=== PATIENT | male | born 1960 | race Caucasian/White ===

== ENCOUNTER 2018-01-21 17:50 | Emergency (ER) | payer SELFPAY ==
[2018-01-21 17:52] VITALS: BP 180/115; PULSE 71; RESP 16; TEMP 36.6; O2SAT 98
--- NOTE | 2018-01-21 18:19 | EKG12_ITS ---
Test Reason : Blood Pressure : / mmHG Vent. Rate : 064 BPM Atrial Rate : 064 BPM P-R Int : 160 ms QRS Dur : 084 ms QT Int : 414 ms P-R-T Axes : 061 -07 033 degrees QTc Int : 427 ms Sinus bradycardia Left axis deviation Possible Inferior infarct Confirmed by MAURICIO HERRMANN, STEF ([id number]), publications editor GINGER ALVARADO ([id number] on 01/25/2018 3:56:45 PM Referred By: HAYDEE Confirmed By:STEF MARTÍNEZ MD
[2018-01-21] MEDS: amLODIPine 5 MG Tablet PO (18:46)
[2018-01-21 18:50] VITALS: BP 173/112; PULSE 66; RESP 15; O2SAT 98
[2018-01-21 18:56] LABS: Hemoglobin 15.8 g/dl (13.0-16.5); Mean Corp Hgb Conc 33.6 g/gl (32-36); Mean Corpuscular Hgb 28.8 pg (27.0-32.0); Mean Corpuscular Volume 85.8 fL (80-94); Mean Platelet Vol. 11.4 fl (6.2-12.0); Platelet Count 219 K/mm3 (150-450); RBC Distribution Width CV 13.2 % (11.6-14.6); RBC Distribution Width SD 41.6 fl (35.1-43.9); Red Blood Count 5.48 M/mm3 (4.6-6.2); White Blood Count 9.7 K/mm3 (4.4-11.0)
[2018-01-21 18:57] LABS: Scan Indicated on CBC? Y/N NO
[2018-01-21 19:02] LABS: Anion Gap 6 (5-15); BUN 15 mg/dL (7-18); Calcium,Total 8.7 mg/dL (8.5-10.1); Chloride 106 mmol/L (98-107); Creatinine, Serum 0.79 mg/dL (0.70-1.30); EST Glomerular Filtration Rate 108 mL/min (>60); Est Glom Filt Rate - Afr Amer 131 mL/min (>60); Estimated Creatinine Clearance 169.46 ml/min; Glucose 130 mg/dL (74-106); Potassium 3.8 mmol/L (3.5-5.1); Sodium Level 139 mmol/L (136-145)
--- NOTE | 2018-01-21 19:46 | ED.VISSUMM ---
- ER Visit Summary Date of Service: 01/21/18 Chief Complaint: Hypertension History of Present Illness: The patient is a 57 M who states that last week he checked his blood pressure and it was significantly high in the range of 180/90. He states that yesterday just was not feeling that good at work. He could not localize anything specific just generalized aches. Stayed home from work today and eventually needed to come to [facility] for his stepdaughter. He states that he stopped by [employer] where he was walking around and began to feel dizzy took his blood pressure and it was elevated. He went to the car to sit down called his who recommended he come to the emergency department. No chest pains. He notes he was a little short of breath when he walked from the car into the emergency room but states that that seems to have been progressive over months. He is a former smoker but still utilizes the occasional cigar. He states that in the past he was on cholesterol medication but does not have a doctor because he lost his health insurance. He states that he was never diagnosed with hypertension in the past. He denies any chest pain on exertion. He denies any claudication symptoms. Patient is very concerned about the cost of this visit. We talked about things we should order including EKG troponin and at least a BMP and a CBC. At this time we are going to forego a chest x-ray. Physical Examination: Afebrile vital signs stable Gen: Well-nourished well-developed Head: Normocephalic atraumatic Eyes: Perrl EOMI ENT: TMs clear no rhinorrhea moist mucous membranes Neck: Supple no lymphadenopathy no JVD nontender CVS: Regular rate rhythm no murmurs normal S1-S2 Respiratory: No distress clear to auscultation bilaterally chest nontender Abdomen: Soft nontender nondistended normal bowel sounds no masses Back: Nontender Extremity: Nontender no edema Skin: Normal color no rash Neuro: alert orientated ?3 CN II-XII intact normal strength sensation reflexes gait cerebellar Psych: Normal affect normal mood Test Results: EKG is a normal sinus rhythm. CBC BMP with a glucose of 130. Troponin is negative. Emergency Department Course and Treatment: Patient received amlodipine his blood pressure is responding. I spoke with him more about choices of blood pressure medication and cost is certainly a very important consideration for him. Because of this I will write him for lisinopril/hydrochlorothiazide as is on the warm [facility] list. [facility]. I advised him he should consider's to cardiac stress testing in the very near future. He was given return instructions and notes understanding. FELIX score is 1. Impression: 1. Hypertension new diagnosis This note was generated with [employer] dictation software. It may contain incorrect words, spelling, and punctuation that were not noted in review of the chart prior to signing ED Disposition - Plan for ED Patient: Disposition: Home or Assisted Living Chief Complaint: Hypertension Instructions: ED HTN Established Prescriptions: Lisinopril/Hydrochlorothiazide [Zestoretic 20-12.5 mg Tablet] 1 ea PO DAILY #30 tab Referrals: Roselyn Harvey [NON-STAFF] - As soon as possible Additional Instructions: You need to establish primary care as soon as possible. You should discuss cardiac stress testing. Return if chest pains, shortness of breath, worsening or concerns
--- NOTE | 2018-01-21 19:52 | ED.DCSUM_ITS ---
- ER Visit Summary Date of Service: 01/21/18 Chief Complaint: Hypertension History of Present Illness: The patient is a 57 M who states that last week he checked his blood pressure and it was significantly high in the range of 180/90. He states that yesterday just was not feeling that good at work. He could not localize anything specific just generalized aches. Stayed home from work today and eventually needed to come to [facility] for his stepdaughter. He states that he stopped by [employer] where he was walking around and began to feel dizzy took his blood pressure and it was elevated. He went to the car to sit down called his who recommended he come to the emergency department. No chest pains. He notes he was a little short of breath when he walked from the car into the emergency room but states that that seems to have been progressive over months. He is a former smoker but still utilizes the occasional cigar. He states that in the past he was on cholesterol medication but does not have a doctor because he lost his health insurance. He states that he was never diagnosed with hypertension in the past. He denies any chest pain on exertion. He denies any claudication symptoms. Patient is very concerned about the cost of this visit. We talked about things we should order including EKG troponin and at least a BMP and a CBC. At this time we are going to forego a chest x- ray. Physical Examination: Afebrile vital signs stable Gen: Well-nourished well-developed Head: Normocephalic atraumatic Eyes: Perrl EOMI ENT: TMs clear no rhinorrhea moist mucous membranes Neck: Supple no lymphadenopathy no JVD nontender CVS: Regular rate rhythm no murmurs normal S1-S2 Respiratory: No distress clear to auscultation bilaterally chest nontender Abdomen: Soft nontender nondistended normal bowel sounds no masses Back: Nontender Extremity: Nontender no edema Skin: Normal color no rash Neuro: alert orientated ?3 CN II-XII intact normal strength sensation reflexes gait cerebellar Psych: Normal affect normal mood Test Results: EKG is a normal sinus rhythm. CBC BMP with a glucose of 130. Troponin is negative. Emergency Department Course and Treatment: Patient received amlodipine his blood pressure is responding. I spoke with him more about choices of blood pressure medication and cost is certainly a very important consideration for him. Because of this I will write him for lisinopril/hydrochlorothiazide as is on the warm [employer] list. [facility]. I advised him he should consider's to cardiac stress testing in the very near future. He was given return instructions and notes understanding. FELIX score is 1. Impression: 1. Hypertension new diagnosis This note was generated with [employer] dictation software. It may contain incorrect words, spelling, and punctuation that were not noted in review of the chart prior to signing ED Disposition - Plan for ED Patient: Disposition: Home or Assisted Living Chief Complaint: Hypertension Instructions: ED HTN Established Prescriptions: Lisinopril/Hydrochlorothiazide [Zestoretic 20-12.5 mg Tablet] 1 ea PO DAILY #30 tab Referrals: Roselyn Harvey [NON-STAFF] - As soon as possible Additional Instructions: You need to establish primary care as soon as possible. You should discuss cardiac stress testing. Return if chest pains, shortness of breath, worsening or concerns
[2018-01-21 19:54] VITALS: BP 167/113; PULSE 72; RESP 18; O2SAT 97
== END 2018-01-21 19:55 | disposition home or self-care (01) ==
PROVIDERS: Emergency Provider Emergency Medicine
DX: I10 Essential (primary) hypertension (principal); Z87.891 Personal history of nicotine dependence; R06.09 Other forms of dyspnea
CPT/HCPCS: 80048; 84484; 85027; 93005; 99284; A4216